=== PATIENT | male | born 1980 | race Caucasian/White ===

== ENCOUNTER 2018-03-01 13:27 | Emergency (ER) | payer BC, OTHER ==
[~2018-03-01] VITALS: Ht 170.2 cm; Wt 73.1 kg
[2018-03-01 13:39] VITALS: BP 138/83
[2018-03-01] MEDS ORDERED: BACDS PO (15:17)
[2018-03-01] MEDS ORDERED: MUPI22OI30 TOP (15:33)
== END 2018-03-01 16:00 | disposition home or self-care (01) ==
LOC: ER 13:28
DX: K13.0 Diseases of lips (principal); F15.10 Other stimulant abuse, uncomplicated; Z88.0 Allergy status to penicillin; Z56.0 Unemployment, unspecified; Z59.0 Homelessness; Z60.2 Problems related to living alone
CPT/HCPCS: 99283